=== PATIENT | female | born 1935 | race Caucasian/White ===

== ENCOUNTER → 2018-06-22 | Emergency (ER) | payer OTHER ==
[~2018-06-22] VITALS: Ht 162.6 cm; Wt 72.6 kg
[~2018-06-22] MED LIST: ASPIR 8181 MG PO; ATENOLOL 50MG T50 M1 PO; CARVEDILOL12.5 MG PO; CLONIDINE HCL0.3 M3 PO; HYDRALAZINE 2525 MG PO; IRON325 PO; LASIX 20 MG TAB20 MG PO; LEVEMIR SUBQ; LIPITOR80 MG PO; MELATONIN5 M1 PO; METHIMAZOLE5 MG PO; NORVASC5 MG PO; NOVOLOG100 UNIT/1 SUBQ; POTASSIUM20 PO; PROTONIX40 M1 PO; ZESTORETIC 20-1 EAC3 PO; ZESTORETIC 20-1 EACH PO
[2018-06-22 03:50] LABS: URINE BILIRUBIN NEGATIVE (Negative); URINE BLOOD NEGATIVE (Negative); URINE CLARITY CLEAR; URINE COLOR YELLOW; URINE GLUCOSE-RANDOM NEGATIVE (Negative); URINE KETONES NEGATIVE (Negative); URINE LEUKOCYTES-REFLEX NEGATIVE (Negative); URINE NITRITE-REFLEX NEGATIVE (Negative); URINE PROTEIN 2+ (Negative); URINE UROBILINOGEN 0.2 E.U./dl (0.2-1.0)
[2018-06-22 03:55] LABS: HEMOGLOBIN 14.1 gm/dL (12.0-15.0); MCH 30.3 pg (26.0-34.0); MCHC 32.8 g/dL (28.0-37.0); MCV 92.6 fL (80.0-100.0); MPV 10.9 fl. (7.2-11.1); NUCLEATED RBCS 0 /100WBC; PLATELET COUNT* 206 thou/uL (150-400); RBC 4.64 mil/uL (4.20-5.00); RDW-CV 13.7 % (10.5-14.5); WBC 11.7 thou/uL (4.0-11.0)
[2018-06-22 04:02] LABS: ANION GAP 4 mmol/L (7-16); BUN 26 mg/dL (7-18); CALCIUM 10.3 mg/dL (8.5-10.1); CHLORIDE 104 mmol/L (98-107); CO2 28 mmol/L (21-32); CREATININE 1.1 mg/dL (0.6-1.3); GLUCOSE 94 mg/dL (70-99); POTASSIUM 3.8 mmol/L (3.5-5.1); SODIUM 136 mmol/L (136-145)
[2018-06-22 04:09] LABS: ALBUMIN 3.4 g/dL (3.4-5.0); ALKALINE PHOSPHATASE 123 U/L (46-116); SGOT 25 U/L (15-37); SGPT 27 U/L (30-65); TOTAL BILIRUBIN 0.7 mg/dL (<0.1-1.0); TOTAL PROTEIN 7.4 g/dL (6.4-8.2); TROPONIN-I LEVEL <0.06 ng/mL (<0.06)
[2018-06-22 06:10] LABS: ABSOLUTE BASOPHILS 0.1 thou/uL (0.0-0.2); ABSOLUTE LYMPHOCYTES 1.8 thou/uL (0.8-5.3); ABSOLUTE MONOCYTES 0.2 thou/uL (0.0-1.2); ABSOLUTE NEUTROPHILS 9.6 thou/uL (1.6-8.1)
[2018-06-22 06:11] LABS: PLATELET ESTIMATE ADEQUATE
[2018-06-22 07:53] VITALS: BP 173/62
--- NOTE | 2018-06-22 10:21 | EKG ---
[place] [address] ELECTROCARDIOGRAM REPORT Name: RAGHU NUNES Room: [facility]#: [id number] Admission: 06/22/18 Attend Phys: Discharge: Date of : 37 Report #: [id number] THIS REPORT FOR: //name// [facility] ED Test Date: 2018-06-22 Test Time: 03:49:56 Pat Name: RAGHU NUNES Department: Room: Gender: F Clinical Applications Specialist: JOHN : 1935 Requested By: Jony Kent Order Number: [id number] MD: Stefan Harris Measurements Intervals [place] Rate: 65 P: 96 PA: 199 QRS: 10 QRSD: 107 T: 12 QT: 422 QTc: 439 Interpretive Statements Sinus rhythm Probable left ventricular hypertrophy Compared to ECG 02/12/2017 17:47:48 ST (T wave) deviation no longer present Electronically Signed On 06-22-2018 10:21:06 PATIENT TRANSPORTER by Stefan Harris [email or web address] <ELECTRONICALLY SIGNED> By: Stefan Harris MD, [facility] 06/22/18 1021 0349 034 Stefan Harris MD, FACC /EPI
== END ==
LOC: M.ERS 03:14
PROVIDERS: Emergency Medicine Emergency Medical Services
DX: E11.649 Type 2 diabetes mellitus with hypoglycemia without coma (principal); I10 Essential (primary) hypertension; E78.5 Hyperlipidemia, unspecified

== ENCOUNTER 2018-09-19 07:44 | Inpatient (IN) | payer OTHER ==
[~2018-09-19] VITALS: Ht 165.1 cm; Wt 78.9 kg
[2018-09-19 07:45] VITALS: BP 149/107
[2018-09-19 08:40] LABS: ABSOLUTE BASOPHILS 0.1 thou/uL (0.0-0.2); ABSOLUTE EOSINOPHILS 0.1 thou/uL (0.0-0.7); ABSOLUTE LYMPHOCYTES 1.3 thou/uL (0.8-5.3); ABSOLUTE MONOCYTES 0.7 thou/uL (0.0-1.2); ABSOLUTE NEUTROPHILS 10.4 thou/uL (1.6-8.1); BASOPHILS 0.4 %; EOSINOPHILS 1.1 %; HEMATOCRIT 41.3 % (37.0-47.0); HEMOGLOBIN 13.5 gm/dL (12.0-15.0); LYMPHOCYTES 10.5 %; MCH 29.8 pg (26.0-34.0); MCHC 32.6 g/dL (28.0-37.0); MCV 91.2 fL (80.0-100.0); MONOCYTES 5.2 %; MPV 10.8 fl. (7.2-11.1); NUCLEATED RBCS 0 /100WBC; PLATELET COUNT* 200 thou/uL (150-400); POLYS 82.8 %; RBC 4.53 mil/uL (4.20-5.00); RDW-CV 13.9 % (10.5-14.5); WBC 12.6 thou/uL (4.0-11.0)
[2018-09-19 08:43] LABS: ANION GAP 10 mmol/L (7-16); BUN 30 mg/dL (7-18); CALCIUM 9.4 mg/dL (8.5-10.1); CHLORIDE 108 mmol/L (98-107); CO2 26 mmol/L (21-32); CREATININE 1.2 mg/dL (0.6-1.3); GLUCOSE 134 mg/dL (70-99); POTASSIUM 3.9 mmol/L (3.5-5.1); SODIUM 144 mmol/L (136-145); TROPONIN-I LEVEL <0.06 ng/mL (<0.06)
[2018-09-19 08:52] LABS: ALBUMIN 3.2 g/dL (3.4-5.0); ALKALINE PHOSPHATASE 122 U/L (46-116); NT-PRO BRAIN NAT PEPTIDE 191 pg/mL (<300); SGOT 26 U/L (15-37); SGPT 20 U/L (30-65); TOTAL BILIRUBIN 0.5 mg/dL (<0.1-1.0); TOTAL PROTEIN 7.1 g/dL (6.4-8.2)
[2018-09-19 09:06] LABS: URINE BILIRUBIN NEGATIVE (Negative); URINE BLOOD NEGATIVE (Negative); URINE CLARITY CLEAR; URINE COLOR YELLOW; URINE GLUCOSE-RANDOM TRACE (Negative); URINE KETONES NEGATIVE (Negative); URINE LEUKOCYTES-REFLEX NEGATIVE (Negative); URINE NITRITE-REFLEX NEGATIVE (Negative); URINE PROTEIN 2+ (Negative); URINE UROBILINOGEN 0.2 E.U./dl (0.2-1.0)
[2018-09-19 10:34] LABS: SQUAMOUS 0-3 Few /LPF (0-3)
[2018-09-19 10:35] LABS: BACTERIA-REFLEX 1-9 Few /HPF (None Seen); CASTS None Seen /LPF (None Seen); CRYSTALS None Seen /LPF (None Seen); URINE RBC 0-2 Rare /HPF (0-2); URINE WBC-REFLEX 0-5 Rare /HPF (0-5)
[2018-09-19 10:36] LABS: MUCUS 0-3 Light strn/LPF (None Seen)
[2018-09-19 11:05] VITALS: BP 132/71
[2018-09-19 12:00] VITALS: BP 186/72
--- NOTE | 2018-09-19 12:32 | EKG ---
[place] [address] ELECTROCARDIOGRAM REPORT Name: RAGHU NUNES Room: [address] ADM IN M.R.#: [id number] Admission: 09/19/18 Attend Phys: Nayan Jackson MD Discharge: Date of : 37 Report #: [id number] THIS REPORT FOR: //name// [facility] ED Test Date: 2018-09-19 Test Time: 07:48:57 Pat Name: RAGHU NUNES Department: Room: [facility] Gender: F Infant Babysitter: Kade BAUTISTA : 1935 Requested By: Jony Kent Order Number: [id number] MD: Sigifredo Cardenas Measurements Intervals [place] Rate: 60 P: [place]: QRS: 26 QRSD: 120 T: 30 QT: 415 QTc: 415 Interpretive Statements nsr, artifact Paired ventricular premature complexes Nonspecific intraventricular conduction delay Anteroseptal infarct, old Compared to ECG 06/22/2018 03:49:56 Ventricular premature complex(es) now present Intraventricular conduction delay now present Myocardial infarct finding now present Sinus rhythm no longer present Electronically Signed On 09-19-2018 12:32:46 CDT by Sigifredo Cardenas [email or web address] <ELECTRONICALLY SIGNED> By: Sigifredo Cardenas MD, FACC 09/19/18 1232 0748 0748 Sigifredo Cardenas MD, FAC /EPI
[2018-09-19 15:59] VITALS: BP 179/62
[2018-09-19 20:00] VITALS: BP 166/70
[2018-09-20] VITALS: BP 152/50
[2018-09-20 04:00] VITALS: BP 183/57
[2018-09-20 05:14] LABS: ABSOLUTE EOSINOPHILS 0.1 thou/uL (0.0-0.7); ABSOLUTE LYMPHOCYTES 1.8 thou/uL (0.8-5.3); ABSOLUTE MONOCYTES 0.8 thou/uL (0.0-1.2); ABSOLUTE NEUTROPHILS 7.2 thou/uL (1.6-8.1); BASOPHILS 0.5 %; EOSINOPHILS 0.7 %; HEMATOCRIT 35.6 % (37.0-47.0); HEMOGLOBIN 11.8 gm/dL (12.0-15.0); LYMPHOCYTES 18.1 %; MCHC 33.1 g/dL (28.0-37.0); MCV 90.6 fL (80.0-100.0); MONOCYTES 8.2 %; MPV 10.8 fl. (7.2-11.1); NUCLEATED RBCS 0 /100WBC; PLATELET COUNT* 180 thou/uL (150-400); POLYS 72.5 %; RBC 3.93 mil/uL (4.20-5.00); RDW-CV 13.5 % (10.5-14.5)
[2018-09-20 05:34] LABS: CALCIUM 9.4 mg/dL (8.5-10.1); CREATININE 1.3 mg/dL (0.6-1.3); POTASSIUM 3.9 mmol/L (3.5-5.1)
[2018-09-20 08:26] VITALS: BP 194/64
--- NOTE | 2018-09-20 11:40 | EKG ---
[place] [address] ELECTROCARDIOGRAM REPORT Name: RAGHU NUNES Room: [address] ADM IN M.R.#: [id number] Admission: 09/19/18 Attend Phys: Nayan Jackson MD Discharge: Date of : 37 Report #: [id number] THIS REPORT FOR: //name// [facility] Test Date: 2018-09-20 Test Time: 08:20:05 Pat Name: RAGHU NUNES Department: Room: [address] Gender: F Reel System Operator: : 1935 Requested By: Sigifredo Cardenas Order Number: [id number] MD: Sigifredo Cardenas Measurements Intervals [place] Rate: 71 P: -18 AL: 203 QRS: 2 QRSD: 103 T: -7 QT: 392 QTc: 426 Interpretive Statements Sinus rhythm Probable left ventricular hypertrophy Inferior infarct, age indeterminate Compared to ECG 09/19/2018 07:48:57 Ventricular premature complex(es) no longer present Intraventricular conduction delay no longer present Myocardial infarct finding still present Electronically Signed On 09-20-2018 11:40:03 CDT by Sigifredo Cardenas [email or web address] <ELECTRONICALLY SIGNED> By: Sigifredo Cardenas MD, FAC 09/20/18 1140 9 9 Sigifredo Cardenas MD, FAC /EPI
[2018-09-20 12:51] VITALS: BP 201/68
[2018-09-20 16:12] VITALS: BP 179/66
[2018-09-20 19:45] VITALS: BP 151/59
[2018-09-21] VITALS: BP 169/57
[2018-09-21 03:45] VITALS: BP 159/52
[2018-09-21 08:00] VITALS: BP 168/57
[2018-09-21 10:00] VITALS: BP 168/57
[2018-09-21] MEDS ORDERED: MIRALAX17 GM PO (11:47)
[2018-09-21 11:51] VITALS: BP 171/63
== END 2018-09-21 17:06 | DRG 637 ==
LOC: M.ERS 07:44 → M.TBA-ER 09:17 → M.2W 09:17
PROVIDERS: Emergency Medicine Emergency Medical Services; ADMIT Internal Medicine
DX: E11.649 Type 2 diabetes mellitus with hypoglycemia without coma (principal); G93.41 Metabolic encephalopathy; I48.91 Unspecified atrial fibrillation; E05.90 Thyrotoxicosis, unspecified without thyrotoxic crisis or storm; Z79.84 Long term (current) use of oral hypoglycemic drugs; R60.9 Edema, unspecified; E78.5 Hyperlipidemia, unspecified; I10 Essential (primary) hypertension; E04.9 Nontoxic goiter, unspecified; Z79.4 Long term (current) use of insulin; Z79.82 Long term (current) use of aspirin

== ENCOUNTER 2018-11-03 07:30 | Emergency (ER) | payer OTHER ==
[~2018-11-03] VITALS: Ht 162.6 cm; Wt 84.8 kg
[~2018-11-03 07:30] MED LIST changes: +MIRALAX17 GM PO
[2018-11-03 08:12] LABS: ABSOLUTE BASOPHILS 0.1 thou/uL (0.0-0.2); ABSOLUTE MONOCYTES 0.3 thou/uL (0.0-1.2); ABSOLUTE NEUTROPHILS 10.8 thou/uL (1.6-8.1); BASOPHILS 0.4 %; EOSINOPHILS 0.3 %; HEMATOCRIT 40.7 % (37.0-47.0); HEMOGLOBIN 13.5 gm/dL (12.0-15.0); LYMPHOCYTES 7.9 %; MCH 30.4 pg (26.0-34.0); MCHC 33.2 g/dL (28.0-37.0); MCV 91.7 fL (80.0-100.0); MONOCYTES 2.6 %; NUCLEATED RBCS 0 /100WBC; PLATELET COUNT* 218 thou/uL (150-400); POLYS 88.8 %; RBC 4.44 mil/uL (4.20-5.00); RDW-CV 13.7 % (10.5-14.5); WBC 12.2 thou/uL (4.0-11.0)
[2018-11-03 08:28] LABS: CALCIUM 9.5 mg/dL (8.5-10.1)
[2018-11-03 08:31] LABS: POTASSIUM 2.9 mmol/L (3.5-5.1)
[2018-11-03 08:32] LABS: ALBUMIN 3.3 g/dL (3.4-5.0); TOTAL BILIRUBIN 0.7 mg/dL (<0.1-1.0); TOTAL PROTEIN 7.1 g/dL (6.4-8.2)
[2018-11-03 09:14] LABS: URINE BILIRUBIN NEGATIVE (Negative); URINE BLOOD NEGATIVE (Negative); URINE CLARITY CLEAR; URINE COLOR YELLOW; URINE GLUCOSE-RANDOM NEGATIVE (Negative); URINE KETONES NEGATIVE (Negative); URINE LEUKOCYTES-REFLEX NEGATIVE (Negative); URINE NITRITE-REFLEX NEGATIVE (Negative); URINE PROTEIN 1+ (Negative); URINE SPECIFIC GRAVITY 1.015 (1.005-1.030); URINE UROBILINOGEN 0.2 E.U./dl (0.2-1.0)
[2018-11-03 12:21] VITALS: BP 187/60
== END 2018-11-03 12:20 | disposition home or self-care (01) ==
LOC: M.ERS 07:30
PROVIDERS: Emergency Medicine
DX: E11.649 Type 2 diabetes mellitus with hypoglycemia without coma (principal); I10 Essential (primary) hypertension; E78.5 Hyperlipidemia, unspecified; Z79.4 Long term (current) use of insulin

== ENCOUNTER 2020-05-18 06:23 | Observation (INO) | payer MEDICARE ==
[~2020-05-18] VITALS: Ht 160 cm; Wt 77.5 kg
[~2020-05-18 06:23] MED LIST changes: -LEVEMIR SUBQ; +LEVEMIR100 UNIT/1 SUBQ
[2020-05-18 06:40] VITALS: BP 130/38
[2020-05-18 06:57] LABS: HEMATOCRIT 34.1 % (37.0-47.0); HEMOGLOBIN 11.1 gm/dL (12.0-15.0); MCH 29.9 pg (26.0-34.0); MCHC 32.6 g/dL (28.0-37.0); MCV 91.7 fL (80.0-100.0); MPV 11.1 fl. (7.2-11.1); NUCLEATED RBCS 0 /100WBC; PLATELET COUNT* 136 thou/uL (150-400); RBC 3.71 mil/uL (4.20-5.00); RDW-CV 14.7 % (10.5-14.5); WBC 8.6 thou/uL (4.0-11.0)
[2020-05-18 07:07] LABS: URINE BILIRUBIN NEGATIVE (Negative); URINE BLOOD NEGATIVE (Negative); URINE CLARITY CLEAR; URINE COLOR YELLOW; URINE GLUCOSE-RANDOM NEGATIVE (Negative); URINE KETONES NEGATIVE (Negative); URINE LEUKOCYTES-REFLEX NEGATIVE (Negative); URINE NITRITE-REFLEX NEGATIVE (Negative); URINE PROTEIN NEGATIVE (Negative); URINE UROBILINOGEN 0.2 E.U./dl (0.2-1.0)
[2020-05-18 07:09] LABS: CREATININE 1.7 mg/dL (0.6-1.3)
[2020-05-18 07:10] LABS: INR 1.2; POTASSIUM 6.7 mmol/L (3.5-5.1); PROTIME 12.8 Seconds (9.20-11.50)
[2020-05-18 07:19] LABS: ALBUMIN 2.9 g/dL (3.4-5.0); MAGNESIUM 2.5 mg/dL (1.8-2.4); TOTAL BILIRUBIN 0.4 mg/dL (<0.1-1.0); TOTAL PROTEIN 6.5 g/dL (6.4-8.2)
--- NOTE | 2020-05-18 07:47 | NUR ---
PT'S BROTHER AND DPOA, MARION MCKEE [phone] WAS CONTACTED THIS MORNING AND WAS ASKED INFORMATION ABOUT THE FACILITY THAT THE PATIENT LIVES IN AND IF HE IS AWARE OF THE MULTIPLE BRUISES AND THE PATIENT'S WEEPING, EDEMATOUS BILATERAL LEGS. MARION STATES THAT HE HAS NOT SEEN HIS SISTER SINCE FEBRUARY 2020 AND SHE IS UNDER THE CARE OF [facility] EVERY OTHER DAY. THE NURSE'S NAME THAT MARION PROVIDED IS ULICES FARRIS. MARION STATES THAT THE PATIENT'S CARE WAS INTENDED TO GO FROM EVERY OTHER DAY TO EVERY DAY STARTING TODAY BUT THE PATIENT WAS BROUGHT TO THIS ER THIS MORNING DUE TO ALTERED MENTAL STATUS AND BEING FOUND DOWN ON THE FLOOR FOR AN UNKNOWN PERIOD OF TIME. MARION STATES THAT THE PATIENT'S CONDITION HAS BEEN DECLINING AND IS SUPPOSED TO BE TRANSFERRED TO A JAIL FACILITY AT THE BEGINNING OF NEXT WEEK. MARION WAS ASKED IF THE PATIENT'S STATUS IS FULL CODE OR DNR AND THE DIFFERENCES OF THE TWO WERE EXPLAINED TO MARION. MARION STATES THAT THE PATIENT DOES NOT WANT TO BE INTUBATED AND PLACED ON LIFE SUPPORT SO SHE WOULD BE A DNR. MARION ALSO STATES THAT THE PATIENT'S WISHES INCLUDE REFUSAL OF AMPUTATION OF LEGS. [facility] WAS CONTACTED TO INQUIRE ABOUT PATIENT'S CARE. THE PATIENT'S NURSE, ULICES FARRIS IS NOT AVAIABLE UNTIL 0900. THIS NURSE WAS TOLD THAT AN EMAIL WOULD BE SENT TO ULICES FARRIS TO CALL THIS FACILITY ONCE SHE ARRIVES TO WORK.
[2020-05-18 08:05] LABS: ABSOLUTE BASOPHILS 0.1 thou/uL (0.0-0.2); ABSOLUTE LYMPHOCYTES 0.6 thou/uL (0.8-5.3); ABSOLUTE MONOCYTES 0.3 thou/uL (0.0-1.2); ABSOLUTE NEUTROPHILS 7.7 thou/uL (1.6-8.1)
[2020-05-18 08:09] LABS: PLATELET ESTIMATE DECREASED
--- NOTE | 2020-05-18 08:10 | NUR ---
ULICES KALEIGH CALLED AND REPORTS THAT THE PATIENT'S BASELINE IS CONFUSED, MORESO OVER LAST 2 WEEKS. ULICES REPORTS THAT THE PATIENT'S BLOOD PRESSURE HAS LOWERED TO 90'S/50'S, HER CLONIDINE AND HYDRALAZINE MEDS HAVE BEEN DISCONTINUED, BLOOD SUGARS HAVE BEEN RUNNING 120-180'S, PT HAS HAD 4+ WEEPING EDEMA IN BILATERAL LEGS AND REFUSES TO ELEVATE LEGS. PT STARTED HAVING SLURRED SPEECH LAST WEEK BUT WAS NOT SEEN AT A HOSPITAL FOLLOW UP FOR STROKE SYMPTOMS. THE PATIENT HAS BEEN REFUSING BATHS, AND LAST ATTEMPT AT A "WIPE DOWN" WAS ON FRIDAY OF THIS WEEK. THIS NURSE INFORMED ULICES THAT ALL OF THIS INFORMATION WOULD BE DOCUMENTED, ULICES VERBALIZES UNDERSTANDING.
--- NOTE | 2020-05-18 08:47 | NUR ---
PT'S BED LINENS WERE CHANGED BY ER STAFF, CHUCKS PADS PLACED UNDERNEATH OF PATIENT AND PATIENT'S LEGS. OCCULT STOOL SENT TO LAB DUE TO DARK LYON/BLACK REMNANTS OF STOOL ON PATIENT'S BOTTOM. PRESSURE WOUND NOTED ON PATIENT'S BOTTOM WELL MUTIPLE BRUISES NOTED ABOVE PATIENT'S COCCYX AND ON BILATERAL ARMS AND LEGS.
[2020-05-18 10:12] LABS: CALCIUM 10.7 mg/dL (8.5-10.1); CREATININE 1.7 mg/dL (0.6-1.3)
[2020-05-18 10:13] LABS: POTASSIUM 5.4 mmol/L (3.5-5.1)
--- NOTE | 2020-05-18 10:49 | EKG ---
[place] [address] ELECTROCARDIOGRAM REPORT Name: RAGHU NUNES Room: [address]#: [id number] Admission: 05/18/20 Attend Phys: Mino Sanchez, Discharge: Date of : 37 Date of Service: 05/18/20 0630 Report #: [id number] THIS REPORT FOR: //name// [facility] ED Test Date: 2020-05-18 Test Time: 06:30:01 Pat Name: RAGHU NUNES Department: Room: [facility] Gender: F Photographer: MC : 1935 Requested By: Gabriela Rodriguez Order Number: [id number] MD: Stefan Harris Measurements Intervals [place] Rate: 47 P: IN: QRS: 26 QRSD: 116 T: 30 QT: 485 QTc: 429 Interpretive Statements sinus bradycardia Left ventricular hypertrophy Artifact in lead(s) I,II,aVR,aVL,aVF,V1,V2,V5 Compared to ECG 09/20/2018 08:20:05 rate has slowed Electronically Signed On 05-18-2020 10:48:49 MIRROR PAINTER by Stefan Harris [email or web address] <ELECTRONICALLY SIGNED> By: Stefan Harris MD, FACC 05/18/20 1048 Stefan Harris MD, FACC /EPI
[2020-05-18 10:58] VITALS: BP 99/40
[2020-05-18 11:15] VITALS: BP 90/28
--- NOTE | 2020-05-18 13:15 | NUR ---
WOUND NURSE: PATIENT SEEN TO ADDRESS MULTIPLE CIRCIFORM SHALLOW EROSIONS ON BILATERAL LOWER LEGS AND LEFT HEEL. RLE WOUNDS CLUSTERED IN 19 X 10 CM AREA AND ALL WOUNDS 0.1 TO 0.2 CM. LLE WOUNDS CLUSTERED IN 12 X 14 CM AREA AND LT HEEL 5 X 6 X 0.1 CM. ALL WITH RED, NONGRANULATING TISSUE IN THE WOUND BEDS. SCANT SEROUS DRAINAGE PRESENT. SKIN HEAVILY COVERED IN AREAS WITH HYPERKERATOTIC LESIONS. PATIENT HAS LEFT ELBOW SKIN TEAR MEASURING 0.5 X 2.5 X 0.1 CM. THERE IS NO ACTIVE DRAINAGE. SEE INTERVENTION FOR ADDITIONAL INFORMATION. PATIENT ALSO WITH ODIFEROUS RASH IN GROIN AND PERINEUM. PROVIDED INTERDRY FOR APPLICATION IN THIS AREA. PATIENT IS NOT TEACHEABLE AND WILL REQUIRE COMPLETE ASSISTANCE WITH REPOSITIONING.
--- NOTE | 2020-05-18 13:22 | NUR ---
CM spoke with Pt's brother via phone. Pt has been residing at [facility] was on [place] [facility] care. Hospice was working with brother to have Pt placed at [facility] [place] with hospice. VICTOR MANUEL spoke with Toy[place] [facility] able [place] Pt to LTC on Friday with hospice. Brother noted that when he spoke with his sister yesterday, she seemed more confused than normal. Pt used a walker at [facility]. Hospice nurse had increased her visits from twice/week, they were going to begin seeing her daily, but Pt ended up getting admitted to the hospital. VICTOR MANUEL left a VM for Clover at [facility] to discuss dc plans [phone]. Pt is a DNR. Following [facility] [phone]
--- NOTE | 2020-05-18 14:49 | EKG ---
[place] [address] ELECTROCARDIOGRAM REPORT Name: NUNESRAGHU Zarina Room: [address]R.#: [id number] Admission: 05/18/20 Attend Phys: Mino Sanchez, Discharge: Date of : 37 Date of Service: 05/18/20 0630 Report #: [id number] THIS REPORT FOR: //name// [facility] ED Test Date: 2020-05-18 Test Time: 06:30:58 Pat Name: RAGHU NUNES Department: Room: [address] Gender: F Inspector Salvage: MC : 1935 Requested By: Mary Jane Aawn Order Number: [id number] MD: Chilo Cole Measurements Intervals [place] Rate: 47 P: -70 VT: 207 QRS: 25 QRSD: 103 T: 32 QT: 485 QTc: 429 Interpretive Statements Sinus or ectopic atrial bradycardia Left ventricular hypertrophy Compared to ECG 05/18/2020 06:30:01 Bradycardia, nonsinus now present Sinus bradycardia no longer present Electronically Signed On 05-18-2020 14:48:57 ELECTRONICS MAINTENANCE TECHNICIAN by Chilo Cole [email or web address] <ELECTRONICALLY SIGNED> By: Chilo Cole MD, FACC 05/18/20 1448 9 Chilo Cole MD, FAC /EPI
--- NOTE | 2020-05-18 16:08 | NUR ---
PATIENT ADMITTED TO ROOM 304 FROM ER. ALERT AND ORIENTED TO NAME. DR. NGUYEN WAS NOTIFIED OF ARRIVAL VITALS. PATIENT COMFORT CARE/HOSPICE. KASSANDRA FROM WOUND CARE HERE THIS AFTERNOON AND LEG WOUNDS WRAPPED. TURN Q2. IV REPLACED THIS SHIFT PATIENT DC'D OWN IV. IVF INFUSING ORDERED. PATIENT DID EAT A SMALL AMOUNT OF FOOD. BED ALARM ON FOR PATIENT SAFETY. CALL LIGHT WITHIN REACH.
[2020-05-18 16:42] VITALS: BP 107/45
[2020-05-18 23:56] VITALS: BP 99/50
--- NOTE | 2020-05-19 04:43 | NUR ---
PT AWAKE BUT DOES NOT RESPOND TO QUESTIONS. EXTREME FLAT AFFECT. SHE IS A Q2 TURN, LAMB IN PLACE WITH CLEAR YELLOW OUTPUT. SHE DOES NOT APPEAR TO BE IN PAIN. SHE DID VOMIT ON HERSELF AROUND 2100. CLEANED HER UP AND BED CHANGE. SHE SLEPT MOST OF THE SHIFT, NO SIGNS OF ANXIETY AND DID NOT CALL OUT FOR HELP. HER DRESSINGS ON HER LOWER EXTREMITIES ARE C/D/I. SHE RECEIVED FLUIDS ORDERED.
[2020-05-19 08:30] VITALS: BP 82/37
--- NOTE | 2020-05-19 17:56 | NUR ---
Pt alert and answering simple questions this morning. Pt was able to say her name and tried to tell us a birthday but it was hard to understand. Pt vomited stomach acid around 0715 this morning. Pt's upper body was cleaned up with soap and water. Pt agreeable and when asked if it felt better she said yes. Pt refused anything to eat for breakfast. Pt states she feels alright. Pt's brother came to visit but did not want to wake the pt. Pt was sleeping when nurse went in to offer lunch. Pt was turned at this time but did not wake. Pt checked again for 1400 turn when she was found unresponsive and not breathing. Pt declared at 1410 by 2 RNs. supervisor hydrochloric area notified. Dr. Sanchez notified. Pt's brother, Wally, notified. MTN notified. Pt does not meet donor requirements. [facility] called and will be picking pt up.
== END 2020-05-19 14:10 ==
LOC: M.ERS 06:23 → M.TBA-ER 09:58 → M.3W 09:58
PROVIDERS: Emergency Medicine; Personal Emergency Response Attendant; ADMIT Internal Medicine; ATTEND Internal Medicine
DX: R57.9 Shock, unspecified (principal); G92 Toxic encephalopathy; E43 Unspecified severe protein-calorie malnutrition; E05.90 Thyrotoxicosis, unspecified without thyrotoxic crisis or storm; E87.5 Hyperkalemia; E11.9 Type 2 diabetes mellitus without complications; I10 Essential (primary) hypertension; E78.5 Hyperlipidemia, unspecified; N17.0 Acute kidney failure with tubular necrosis; E05.00 Thyrotoxicosis with diffuse goiter without thyrotoxic crisis or storm; I87.8 Other specified disorders of veins; W19.XXXA Unspecified fall, initial encounter; Z79.899 Other long term (current) drug therapy; Z79.4 Long term (current) use of insulin; Z20.828 Contact with and (suspected) exposure to other viral communicable diseases